=== PATIENT | female | born 1940 | race Caucasian/White ===

== ENCOUNTER 2019-08-16 21:51 | Emergency (ER) | payer MEDICARE ==
[~2019-08-16] VITALS: Ht 152.4 cm; Wt 69.2 kg
[2019-08-16] MEDS ORDERED: INSU100C5 SQ-INSULIN (22:08)
[2019-08-16] MEDS ORDERED: SODIUM CHLORIDE FLUSH 10ML SYR IVF ONE (22:30)
[2019-08-16] MEDS ORDERED: SODIUM CHLORIDE 0.9% 1,000ML IVBOLUS ONE ×2 (22:30→23:00)
[2019-08-16 22:31] LABS: PH, VENOUS 7.404 pH (7.320-7.420)
[2019-08-16 22:32] LABS: BASOPHILS # (AUTO) 0.03 x10^3/uL (0-0.1); BASOPHILS % (AUTO) 0 % (0-1); EOSINOPHILS # (AUTO) 0.26 x10^3/uL (0-0.4); EOSINOPHILS % (AUTO) 3 % (1-7); LYMPHOCYTES # (AUTO) 2.76 x10^3/uL (1-3.4); LYMPHOCYTES % (AUTO) 33 % (22-44); MD NO; MEAN CORPUSCULAR HEMOGLOBIN 29.9 pg (27.0-34.8); MEAN CORPUSCULAR HGB CONC 32.6 g/dL (32.4-35.8); MEAN CORPUSCULAR VOLUME 91.7 fL (80-100); MEAN PLATELET VOLUME 7.4 fL (7.4-10.4); MONOCYTES # (AUTO) 0.45 x10^3/uL (0.2-0.8); MONOCYTES % (AUTO) 6 % (2-9); NEUTROPHILS # (AUTO) 4.78 x10^3/uL (1.8-6.8); NEUTROPHILS % (AUTO) 58 % (42-75); PLATELET COUNT 261 x10^3/uL (130-400); RED BLOOD COUNT 4.59 x10^6/uL (3.82-5.3); RED CELL DISTRIBUTION WIDTH 13.6 % (9.6-15.2)
--- NOTE | 2019-08-16 22:32 | NUR ---
THIS IS A 78 YO FEMALE COMING IN FOR N/V/D AND HIGH BLOOD SUGAR FOR THE PAST DAY. PATIENT HAS HX OF ALZHEIMERS AND DEMENTIA, DAUGHTER IS PRIMARY HISTORIAN. DAUGHTER STATES "SHE THREW UP A FEW TIMES THIS MORNING AND HAS HAD DIARRHEA FOR A FEW DAYS." PATIENT STATES " I HAVEN'T BEEN DRINKING MUCH WATER AND I DON'T FEEL GOOD. I HAD THIS HEADACHE EARLIER TODAY TOO". PATIENT CURRENTLY LIVES AT HOME WITH DAUGHTER, DAUGHTER IS PRIMARY HEADLIGHT ADJUSTER AND IS NOT ALWAYS HOME TO ASSIST PATIENT WITH MEDICATIONS. DAUGHTER STATES "I GOT HOME TODAY AND HER BLOOD SUGAR WAS 484, THEN TOOK IT AGAIN AND IT WAS IN THE 500'S". BLOOD SUGAR IN TRIAGE IS 430. Addendum: 08/16/19 at 2241 by GUIDO PATIENT PLACED ON [employer], NSR NOTED. CONTINUOUS SPO2 AT 97%, CYCLE BP Q1HR. CALL LIGHT IN REACH, DENIES NEEDS AT THIS TIME.
[2019-08-16 22:43] LABS: ALANINE AMINOTRANSFERASE 24 U/L (12-78); ALBUMIN 3.2 g/dL (3.4-5.0); ANION GAP 6 mmol/L (5-15); CALCIUM 8.9 mg/dL (8.5-10.1); CHLORIDE 104 mmol/L (98-107); CREATININE 0.83 mg/dL (0.55-1.02)
[2019-08-16 22:45] LABS: ALKALINE PHOSPHATASE 161 U/L (45-117); BILIRUBIN,TOTAL 0.3 mg/dL (0.2-1.0); TOTAL PROTEIN 6.8 g/dL (6.4-8.2)
--- NOTE | 2019-08-16 22:45 | NUR ---
PATIENT AND DAUGHTER FORGOT MEDICATION LIST AT HOME, UNABLE TO RECALL ALL MEDICATIONS. MED REC NOT FULLY COMPLETED
--- NOTE | 2019-08-16 22:45 | NUR ---
PATIENT AMBULATED TO RESTROOM WITH STANDBY ASSIST. GIVEN VERBAL INSTRUCTIONS OF HOW TO OBTAIN CLEAN CATCH SPECIMEN, PATIENT VERBALIZED UNDERSTANDING. UA SENT.
--- NOTE | 2019-08-16 22:50 | NUR ---
SECOND LITER OF IVF STARTED
[2019-08-16 22:54] LABS: ACETONE, SERUM Negative (Negative)
[2019-08-16 23:13] LABS: CULTURE INDICATED? NO; MICROSCOPIC NOT IND
--- NOTE | 2019-08-16 23:33 | NUR ---
SECOND LITER FINISHED, RECENT BG LEVEL IS 152. NOTIFIED.
[2019-08-16 23:51] VITALS: BP 148/71
--- NOTE | 2019-08-16 23:51 | NUR ---
Patient/Caregiver given discharge instructions and they have confirmed that they understand the instructions. Patient ambulatory with steady gait.
== END 2019-08-16 23:53 | disposition home or self-care (01) ==
LOC: ED 22:57
DX: E86.0 Dehydration (principal); E11.65 Type 2 diabetes mellitus with hyperglycemia; R11.2 Nausea with vomiting, unspecified
CPT/HCPCS: 80053; 81003; 82010; 82803; 82962; 85025; 96360; 99283; J7030

== ENCOUNTER 2020-05-05 03:13 | Emergency (ER) | payer MEDICARE ==
[~2020-05-05] VITALS: Ht 152.4 cm; Wt 65.0 kg
[~2020-05-05 03:13] MED LIST: INSU100C5 SQ-INSULIN
--- NOTE | 2020-05-05 04:31 | NUR ---
[employer]: PT TO ROOM FROM LOBBY
--- NOTE | 2020-05-05 04:46 | NUR ---
Patient presents to ER c/o diarrhea, nausea, and lightheadedness since approx 1730 last night. Patient c/o abd cramping just prior to having a bowel movement but otherwise none. Patient is in nad. Respirations even and unlabored.
[2020-05-05] MEDS ORDERED: ONDANSETRON 2MG/ML, 2ML ONE (05:12)
[2020-05-05] MEDS ORDERED: LOPERAMIDE 2 MG CAPSULE ONE ×2 (05:12→07:57)
[2020-05-05] MEDS ORDERED: SODIUM CHLORIDE 0.9% 1,000ML IVBOLUS ONE (05:30)
[2020-05-05] MEDS ORDERED: ONDANSETRON 2MG/ML, 2ML IVPush ONE (05:30)
[2020-05-05] MEDS ORDERED: SODIUM CHLORIDE FLUSH 10ML SYR IVF ONE (05:30)
[2020-05-05] MEDS ORDERED: LOPERAMIDE 2 MG CAPSULE PO ONE ×2 (05:30→08:00)
[2020-05-05 05:59] LABS: ALANINE AMINOTRANSFERASE 28 U/L (12-78); ALBUMIN 3.8 g/dL (3.4-5.0); ANION GAP 8 mmol/L (5-15); CALCIUM 9.7 mg/dL (8.5-10.1); CHLORIDE 105 mmol/L (98-107); CREATININE 0.88 mg/dL (0.55-1.02)
[2020-05-05 06:01] LABS: ALKALINE PHOSPHATASE 98 U/L (45-117); BILIRUBIN,TOTAL 0.7 mg/dL (0.2-1.0); TOTAL PROTEIN 7.7 g/dL (6.4-8.2)
[2020-05-05 06:42] LABS: CLOSTRIDIUM DIFFICILE ANTIGEN NEGATIVE; CLOSTRIDIUM DIFFICILE TOXIN NEGATIVE (Negative)
--- NOTE | 2020-05-05 06:51 | NUR ---
Report to SALLY Nolen. Patient care transferred.
--- NOTE | 2020-05-05 07:24 | NUR ---
PT RESTING ON GURNEY AT THIS TIME, VSS, NO NEEDS AT THIS TIME.
[2020-05-05 07:25] VITALS: BP 106/66
[2020-05-05 07:42] LABS: BASOPHILS # (AUTO) 0.04 x10^3/uL (0-0.1); BASOPHILS % (AUTO) 1 % (0-1); EOSINOPHILS # (AUTO) 0.18 x10^3/uL (0-0.4); EOSINOPHILS % (AUTO) 2 % (1-7); LYMPHOCYTES # (AUTO) 2.78 x10^3/uL (1-3.4); LYMPHOCYTES % (AUTO) 29 % (22-44); MD NO; MEAN CORPUSCULAR HEMOGLOBIN 30.1 pg (27.0-34.8); MEAN CORPUSCULAR HGB CONC 33.7 g/dL (32.4-35.8); MEAN CORPUSCULAR VOLUME 89.4 fL (80-100); MEAN PLATELET VOLUME 7.6 fL (7.4-10.4); MONOCYTES # (AUTO) 0.49 x10^3/uL (0.2-0.8); MONOCYTES % (AUTO) 5 % (2-9); NEUTROPHILS % (AUTO) 64 % (42-75); PLATELET COUNT 239 x10^3/uL (130-400); RED BLOOD COUNT 4.61 x10^6/uL (3.82-5.3); RED CELL DISTRIBUTION WIDTH 13.4 % (9.6-15.2)
--- NOTE | 2020-05-05 08:13 | NUR ---
PT WITH BM ON GORDY HAD GONE THROUGH BREIF. PT ASSISTED WITH CLEANING. PT AMBULATING WELL, NO DIZZINESS OR WEAKNESS REPORTED/NOTED. UPDATED ERMD, PT PASSED ROAD TEST, PT READY TO DC PER HER REPORT
== END 2020-05-05 08:52 | disposition home or self-care (01) ==
LOC: ED 05:09
DX: R19.7 Diarrhea, unspecified (principal); R11.2 Nausea with vomiting, unspecified; R55 Syncope and collapse; I10 Essential (primary) hypertension; E11.9 Type 2 diabetes mellitus without complications
CPT/HCPCS: 36415; 80053; 85025; 87324; 96374; 99283; J2405; J7030

== ENCOUNTER 2020-05-09 09:06 | Emergency (ER) | payer MEDICARE ==
[~2020-05-09] VITALS: Ht 152.4 cm; Wt 64.5 kg
--- NOTE | 2020-05-09 10:22 | NUR ---
PIV STARTED AND BLOOD DRAWN. DR. ROMANO AT BEDSIDE. STOOL COLLECTED.
[2020-05-09] MEDS ORDERED: CITA20TA6 PO (10:24)
[2020-05-09] MEDS ORDERED: METF-754 PO (10:24)
[2020-05-09] MEDS ORDERED: LEVO50TA5 PO (10:25)
[2020-05-09] MEDS ORDERED: ONDA4TAB13 SL (10:26)
[2020-05-09] MEDS ORDERED: ROSU20TA29 PO (10:26)
[2020-05-09] MEDS ORDERED: INSU100I13 SQ-INSULIN (10:27)
[2020-05-09] MEDS ORDERED: DONE10TA7 PO (10:27)
[2020-05-09 10:53] LABS: ANION GAP 8 mmol/L (5-15); CALCIUM 9.5 mg/dL (8.5-10.1); CHLORIDE 108 mmol/L (98-107); CREATININE 0.81 mg/dL (0.55-1.02)
--- NOTE | 2020-05-09 10:57 | NUR ---
RECEIVED REPORT FROM SERENE ZAVALA. ASSUMING CARE AT THIS TIME.
[2020-05-09 11:00] LABS: MEAN CORPUSCULAR HEMOGLOBIN 30.1 pg (27.0-34.8); MEAN CORPUSCULAR HGB CONC 33.8 g/dL (32.4-35.8); MEAN CORPUSCULAR VOLUME 89.2 fL (80-100); MEAN PLATELET VOLUME 7.7 fL (7.4-10.4); PLATELET COUNT 240 x10^3/uL (130-400); RED CELL DISTRIBUTION WIDTH 12.8 % (9.6-15.2)
[2020-05-09 11:09] VITALS: BP 106/64
--- NOTE | 2020-05-09 11:09 | NUR ---
IVF RUNNING PER NOV. PT RESTING COMFORTABLY ON [facility]. [facility].
[2020-05-09 11:18] LABS: BASOPHILS # (AUTO) 0.02 x10^3/uL (0-0.1); BASOPHILS % (AUTO) 0 % (0-1); EOSINOPHILS # (AUTO) 0.14 x10^3/uL (0-0.4); EOSINOPHILS % (AUTO) 2 % (1-7); LYMPHOCYTES # (AUTO) 2.15 x10^3/uL (1-3.4); LYMPHOCYTES % (AUTO) 29 % (22-44); MD SCAN; MONOCYTES # (AUTO) 0.48 x10^3/uL (0.2-0.8); MONOCYTES % (AUTO) 6 % (2-9); NEUTROPHILS # (AUTO) 4.76 x10^3/uL (1.8-6.8); NEUTROPHILS % (AUTO) 63 % (42-75)
[2020-05-09] MEDS ORDERED: SODIUM CHLORIDE 0.9% 1,000ML IVBOLUS ONE (11:30)
--- NOTE | 2020-05-09 11:49 | NUR ---
ALL RESULTS ARE BACK AT THIS TIME. IVF COMPLETE. CHART UP FOR RECHECK.
== END 2020-05-09 13:10 | disposition home or self-care (01) ==
LOC: ED 12:45
DX: R19.7 Diarrhea, unspecified (principal); E86.0 Dehydration; R11.10 Vomiting, unspecified; R50.9 Fever, unspecified; I10 Essential (primary) hypertension; E11.9 Type 2 diabetes mellitus without complications
CPT/HCPCS: 36415; 80048; 85025; 96360; 99283; J7030